=== PATIENT | female | born 1970 | race Caucasian/White ===

== ENCOUNTER 2024-10-02 19:21 | Emergency (ER) | payer OTHER, SELFPAY ==
--- OUTSIDE RECORDS SUMMARY | 2024-10-02 19:23 | XMS_ITS | Clinical Summary ---
Author Organization 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 [employer] Name Role Phone Unavailable Primary Care Provider Unavailabl e Social History Tobacco Use Types Packs/Day Years Used Date Smoking Tobacco: Never Assessed Comments Unknown Sex and Gender Information Value Date Recorded Sex Assigned at Not on file Legal Sex Female 8:18 PM CDT Gender Identity Not on file Sexual Orientation Not on file Plan of Treatment Health Maintenance Due Date Last Done Comments Cervical Cancer Screening Pa p Smear (Age 30 to 64) Every 3 Years 1968 Colorectal Cancer Screening Colonoscopy (10 Years) 1968 Annual Physical 06/17/1971 Hepatitis C 1986 DTaP, Tdap and Td Vaccines ( 1 - Tdap) 06/17/1987 Hepatitis B Vaccines (1 of 3 - 19+ 3-dose series) 06/17/1987 Cervical Cancer Screening Pa p with HPV Testing (Age 30 to 64) Every 5 Years 1998 Cervical Cancer Screening with HPV 1998 Mammogram Screening 2008 Pneumococcal Vaccine: 50+ Ye ars (1 of 1 - PCV) 2018 Zoster Vaccines (1 of 2) 2018 COVID-19 Vaccine (2023-2 5 season) 2023 Meningococcal B Vaccine Aged Out No l onger eligible based on patient's age to complete this topic Meningococcal Vaccine Aged Out No heriberto ancelmo eligible based on patient's age to complete this topic RSV Immunizations Under 20 Months Aged Out No longer eligible based on patient's age to complete this topic Insurance
[2024-10-02 19:24] VITALS: BP 135/98; PULSE 92; RESP 16; TEMP 36.6
--- OUTSIDE RECORDS SUMMARY | 2024-10-02 19:24 | XMS_ITS | Referral Summary ---
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 Name Role Phone No, Physician Primary Care Provider [phone] Allergies No known active allergies Medications No known medications Active Problems Problem Noted Date Diagnosed Date Chest pain 05/26/2019 Social History Tobacco Use Types Packs/Day Years Used Date Smoking Tobacco: Never Smokeless Tobacco: Never Alcohol Use Standard Drinks/Week Comments Yes 0 (1 standard drink = 0.6 oz pur e alcohol) Personal Safety Answer Date Recorded Getting School Help Needed Not on file 05/29 Comments No Sex and Gender Information Value Date Recorded Sex Assigned at Not on file 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 Gender Identity Not on file Sexual Orientation Not on file Last Filed Vital Signs Vital Sign Reading Time Taken Comments Blood Pressure 150/88 05/27/2019 8:37 AM CDT Pulse 68 05/27/2019 8:37 AM CDT Temperature 36.8 C (98.2 F) 05/26/2019 12:36 PM CDT Respiratory Rate 17 05/26/2019 5:30 PM CDT Oxygen Saturation 98% 05/27/2019 8:37 AM CDT Inhaled Oxygen Concentration - - Weight 95.3 kg (210 lb 3.2 oz) 05/27/2019 8:37 A M CDT Height 175.3 cm (5' 9) 05/27/2019 8:37 AM CDT Body Mass Index 31.04 05/27/2019 8:37 AM CDT Plan of Treatment Not on file Insurance [employer] Care Teams Nuclear Powerplant Supervisor Relationship Specialty Start Date End Date No, Physician PCP - General 05/26/19
--- OUTSIDE RECORDS SUMMARY | 2024-10-02 19:24 | XMS_ITS | Continuity of Care Document ---
Author Name [facility] Organization [facility] Care Team Providers Care Director Of Patient Care Name Role Phone [facility] Unavailable Unavailable Problems Combined list of problems from Department of Defense and Veterans Affairs facilities. It does not include entries that were removed or entered in error. Problem Status Onset Date Problem Type Date of Resolution Comments Source BENIGN SKIN NEOPLASM Inactive Condition [facility] joint pain, localized in the knee Active Condition [facility] Outpatient Physician Consultation Active Condition DoD snoring Active Condition DoD ACROCHORDON Active Condition DoD ATTENTION-DEFICIT HYPERACTIVITY DISORDER Active Condition DoD foot pain (soft tissue) Active Condition [facility] PARTIAL THICKNESS (2ND DEGREE) [place]ULTON ONE FINGER (NOT THUMB) Inactive Condition [facility] visit for: screening exam depression Inactive Condition DoD OVERWEIGHT Active Condition [facility] Mammogram Screening Active Condition [facility] visit for: screening exam for malignant neoplasm cervix Active Condition [facility] ROUTINE GYNECOLOGICAL EXAM WITH CERVICAL PAP SMEAR Inactive Condition [facility] PHARYNGITIS Inactive Condition [facility] drip or drainage down throat from above Inactive Condition [facility] Aftercare Following Surgery Of Nervous System Inactive Condition [facility] LUMBAR RADICULOPATHY Active Condition [facility] Administrative Evaluation Services Active Condition [facility] ESSENTIAL HYPERTENSION Active Condition [facility] STOMATITIS Active Condition [facility] SINUSITIS Active Condition [facility] visit for: administrative purpose Inactive Condition CAROLINE ZUNIGA Age :36 [id number] OUTPAT PRE-ACTIVE ORDERS 1 CON PAIN MANAGEMENT CONSULT at UTILIZATION MANAGEMENT/NURSING on 22 Feb 2007@[id number] {Disc Herniation} ~Pend.Appointment~PRE -ACTIVE~Pending Review sGUST 10DEC@1036 [facility] visit for: issue repeat prescription for medication Active Condition CAROLINE ZUNIGA Age :36 [id number] OUTPAT PRE-ACTIVE ORDERS 1 RX NAPROXEN--PO 500MG TAB~T1 TAB PO BID WF OR MILK RF1 #60 DS30 on 10 Feb 2007@1332 {rd} ~HCP Sig.Needed~PRE-ACTIVE . . . . . . . . sGUSTIM 28NOV@1333 2 RX ORPHENADRINE CITRATE--PO 100MG TBSR~TAKE 1 TAB PO BID WITH NAPROSYN RF1 #60 DS30 on 10 Feb 2007@1334 {RDH} ~HCP Sig.Needed~PRE-ACTIVE . . . . . . . . sGUSTIM 28NOV@1334 3 RX CYCLOBENZAPRINE--PO 10MG TAB~TAKE ONE TABLET PO AT HS PRN RF1 #15 DS30 on 10 Feb 2007@1335 {RDH} ~HCP Sig.Needed~PRE-ACTIVE . . . . . . . . sGUSTIM 28NOV@1335 DoD HERNIATED INTERVERTEBRAL DISC Active Condition DoD lower back pain Active Condition DoD OVARIAN CYST Active Condition DoD blood in urine Active Condition DoD ASTIGMATISM - REGULAR Active Condition DoD PREGLAUC OPEN ANGLE W/ BORDERLINE INTRAOCULAR PRESSURE BILAT Active Condition DoD abdominal pain Inactive Condition Likel y due to number one, but I will check a pelvic ultrasound to further assess this. Will also check a urinalysis. I discussed with the patient that there is a good chance we will need to refer her to a civilian M.D. for further treatment. 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 DoD MENORRHAGIA Active Condition DoD feared medical condition not demonstrated Inactive Condition DoD BREAST CANCER Active Condition fam hx DoD OVARIAN CYST RIGHT Active Condition Results of US discussed with patient. She says she has seen SHEETER HELPER and she has an endometrial ablaiton scheduled. She voiced understanding about the US results and will follow up with SHEETER HELPER. DoD LUMBAGO Active Condition DoD Other Physical Therapy Active Condition DoD DYSMENORRHEA Active Condition I feel this needs work up---Will initate workup, as radha says she has not had an US> Did have NL pap in May 2004. Will get labs, US and consult SHEETER HELPER. DoD RADICULOPATHY Active Condition DoD Allergies, Adverse Reactions, Alerts Combined list of allergies from Department of Defense and Veterans Affairs facilities. It does not include entries that were removed or entered in error. Substance Category Reaction Severity Reaction type Status Date Reported Comments Source No Known Allergies Drug allergy (disorder) active 06/10/2012 [facility] [employer] [facility] ([facility]) Immunizations Combined list of available immunizations from the Department of Defense and Veterans Affairs facilities. Immunization Series Date Given Administered By Site Reaction Lot Number CVX Code Drug [employer] Advisor Status Comments Source tetanus, diphtheria, acellular pertu is 2019 zzLef t Arm [id number] [facility] complet ed tetanus, diphtheri a, acellular pertussis 02/29/20 Given Ambulat ory Pharmac y influenza, injectable, quadrivalent- pf 2019 zzRig ht Arm [id number] 150 Seqirus complet ed influenza , injectabl e, quadrival ent-pf 02/29/20 Given Ambulat ory Pharmac y influenza, injectable, quadrivalent- pf 2019 [id number] 150 Seqirus complet ed influenza , injectabl e, quadrival ent-pf 02/29/20 Given Ambulat ory Pharmac y tetanus, diphtheria, acellular pertu is 2019 [id number] 115 GlaxoSmithKli ne complet ed tetanus, diphtheri a, acellular pertussis 02/29/20 Given Ambulat ory Pharmac y tetanus toxoid, reduced diphtheria toxoid, and acellular pertu is vaccine, adsorbed 1 2019 Unknown, Provider [id number] Skicka TårtaDiggins (SKB) complet ed tetanus toxoid, reduced diphtheri a toxoid, and acellular pertussis vaccine, adsorbed DoD Influenza, injectable, quadrivalent, preservative free 1 2019 Unknown, Provider [id number] 868 150 Seqirus (SEQ) complet ed Influenza , injectabl e, quadrival ent, preservat naga free DoD Novel Influenza-H1N 1-09,live virus,nasal 2008 [id number] 125 [employer] comple t ed Novel Influenza -[id number], live virus,corey al 01/19/09 Given Ambulat ory Pharmac y Novel Influenza-H1N 1-09,live virus,nasal 2008 [id number] 125 [employer] comple t ed Novel Influenza -[id number], live virus,corey al 01/19/09 Given Ambulat ory Pharmac y Novel Influenza-H1N 1-09, live virus for nasal administratio n 1 2008 Unknown, Provider [id number] 125 [employer] (MED) complet ed Novel Influenza -Z0B0-90, live virus for nasal administr ation DoD tetanus-dipht h toxoids (Td) adult/adol 1999 [id number] 09 sanofi pasteur complet ed tetanus-d iphth toxoids (Td) adult/ado l 01/22/00 Given Ambulat ory Pharmac y tetanus-dipht h toxoids (Td) adult/adol 1999 zzLef t Arm [id number] 09 sanofi pasteur complet ed tetanus-d iphth toxoids (Td) adult/ado l 01/22/00 Given Ambulat ory Pharmac y tetanus and diphtheria toxoids, adsorbed, preservative free, for adult use (2 Lf of tetanus toxoid and 2 Lf of diphtheria toxoid) 1 1999 Unknown, Provider [id number] 09 Sanofi Pasteur (PMC) complet ed tetanus and diphtheri a toxoids, adsorbed, preservat naga free, for adult use (2 Lf of tetanus toxoid and 2 Lf of diphtheri a toxoid) DoD Encounters Combined list of: 1) Encounters from Department of Veterans Affairs facilities going backup to the last 18 months, not all VA inpatient encounters are included; 2) Encounters from the Department of Defense facilities going backup to 280 months. Location Location Details Encounter Type Encounter Number Reason For Visit Attending Provider ADM Date DC Date Status Disposition Source [address] [place] [address] [facility])(Sco tt [employer] Medicine Tm) OUTPATIENT [id number] low back pain w/ rt leg difficu lty walking . JACKIE GERMAIN 01/28 Released w/o Limitations [address] [place] [address] [employer] [facility])(S cott Flight Medicin e Tm) [address] [place] [address] [employer] K[facility])([facility] Neuromusc [facility]) OUTPATIENT [id number] DARLENE THORNTON 02/12 Released with Work/Duty Limitations [address] [place] [address] [employer] [employer] [facility])(P t Neuromu sculosk eletal Clinic) [address] [place] [address] [employer] [facility])(Phy sical Therapy) OUTPATIENT [id number] DARLENE THORNTON 02/25 Released w/o Limitations [address] [place] [address] [facility] Kole [facility])(P hysical Therapy ) [address] [place] [address] [employer] [facility] [facility])(Phy sical Therapy) OUTPATIENT [id number] BENNIE LOZANO 02/26 Released w/o Limitations [employer] ([facility] [place])(P hysical Therapy ) [employer] ([facility])(Phy sical Therapy) OUTPATIENT [id number] BOY LOMELI P 02/28 Released w/o Limitations [employer] ([facility] [place])(P hysical Therapy ) [employer] ([facility])(Phy sical Therapy) OUTPATIENT [id number] BOY LOMELI 03/04 Released w/o Limitations [employer] ([facility] [place])(P hysical Therapy ) [employer] ([facility])(Phy sical Therapy) OUTPATIENT [id number] DARLENE THORNTON 03/20 Released w/o Limitations [employer] ([facility] [facility])(P hysical Therapy ) [employer] ([facility] [place] [facility])(Phy sical Therapy) OUTPATIENT [id number] DARLENE THORNTON 04/16 Released w/o Limitations [employer] ([facility] [place] [facility])(P hysical Therapy ) [facility] [employer] ([facility] [facility])(Ilo tt Flight Medicine Tm) OUTPATIENT [id number] [facility] med for hyperte nsion TRINO DELEON Dov 04/16 Released w/o Limitations [employer] ([facility])(S cott Flight Medicin e Tm) [facility] [employer] ([facility])(Envelope Sealer ecology) OUTPATIENT [id number] Consult : Heavy Menses DIMAS SAENZ 04/24 Released w/o Limitations [employer] ([facility])(G ynecolo gy) [facility] [employer] ([facility] [facility])(Ilo tt Flight Medicine Tm) TELE CONSULT [id number] Follow Up TRINO DELEON Dov 04/28 [employer] ([facility])(S cott Flight Medicin e Tm) [employer] ([facility])(Envelope Sealer ecology) OUTPATIENT [id number] EMB (usman Summers i) ZUNILDA MACIAS 04/30 Released w/o Limitations [employer] ([facility])(G ynecolo gy) [facility] [employer] ([facility])(Envelope Sealer ecology) TELE CONSULT [id number] results ZUNILDA MACIAS 05/06 [employer] ([facility])(G ynecolo gy) [facility] Medical [facility] B [facility])(Envelope Sealer ecology) TELE CONSULT [id number] Pre-op care plan LIOR RIGGINS 05/[address] [place] [address] [facility] B [facility])(G ynecolo gy) [address] [place] [address] [facility] B [facility])(Envelope Sealer ecology) OUTPATIENT [id number] DYSMENO RRHEA LIOR RIGGINS 05/20 Released w/o Limitations [address] [place] [address] [facility] TRACYB [facility])(G ynecolo gy) [address] [place] [address] [facility] [employer] [facility])([facility] tt Flight Medicine Tm) OUTPATIENT [id number] HTN eval and treat. JACKIE GERMAIN 10/10 Released w/o Limitations [address] [place] [address] [employer] DEMARCUSB [facility])(S cott Flight Medicin e Tm) [address] [place] [address] [employer] [employer] [facility])([facility] Flight Medicine Tm) TELE CONSULT [id number] JACKIE GERMAIN 10/[address] [place] [address] [facility]S dINK Flight Medicin e Tm) [address] [place] [address] [facility] B [facility])([facility] Flight Medicine Tm) TELE CONSULT [id number] LIPO dissolv e treatme nt JACKIE GERMAIN 10/[address] [place] [address] [facility])(S dINK Flight Medicin e Tm) [address] [place] [address] [facility])(Envelope Sealer ecology) TELE CONSULT [id number] bleedin g/cramp ing TANNER NAVARRO 07/[address] [place] [address] [facility] B [facility])(G ynecolo gy) [facility] Medical [facility] B [facility])(Envelope Sealer ecology) OUTPATIENT [id number] f/u ER (KAREN referra l) TANNER NAVARRO 07/16 Released w/o Limitations [address] [place] [address] [employer] [employer] ([facility])(G ynecolo gy) [address] [place] [address] [facility] B [facility])(Opt ometry) OUTPATIENT [id number] eye exam CASSIE FOURNIER 07/17 Released w/o Limitations [address] [place] [address] [employer] [facility])(O ptometr y) [facility] Medical [facility] [employer] B [facility])(Envelope Sealer ecology) TELE CONSULT [id number] Lab and Rad results TANNER NAVARRO P 07/17 [facility] [employer] ([facility])(G ynecolo gy) [facility] [employer] ([facility])(Envelope Sealer ecology) TELE CONSULT [id number] Pt. request s test results TANNER NAVARRO P 07/[address] [place] [address] [facility] [employer] ([facility])(G ynecolo gy) [address] [place] [address] [employer] [employer] ([facility])([facility] Non-GME FHI1) OUTPATIENT [id number] back pain. ph:[phone] ROLAND HENRY 01/08 Released w/o Limitations [facility] [employer] ([facility])(F amily Practic e Non-GME FHI1) [address] [place] [address] [employer] ([facility])(Phy sical Therapy) OUTPATIENT [id number] lower back pain ROSELINE VELAZCO 01/18 Released with Work/Duty Limitations [facility] [employer] ([facility])(P hysical Therapy ) [address] [place] [address] [employer] ([facility])(Phy sical Therapy) OUTPATIENT [id number] BOY LOMELI 01/19 Released w/o Limitations [facility] [employer] ([facility])(P hysical Therapy ) [address] [place] [address] [employer] ([facility])(Phy sical Therapy) OUTPATIENT [id number] LEONEL ESTRADA 01/26 Released w/o Limitations [address] [place] [address] [employer] ([facility])(P hysical Therapy ) [address] [place] [address] [employer] ([facility])([facility] Non-GME FHI1) TELE CONSULT [id number] Per PT (Col Dowell) , pt would benefit from MRI ESTEVAN VILLEGAS 01/[address] [place] [address] [employer] ([facility] [facility])(F amily Practic e Non-GME FHI1) [facility] [employer] ([facility])(Phy sical Therapy) OUTPATIENT [id number] LEONEL ESTRADA 01/28 Released w/o Limitations [facility] [employer] ([facility])(P hysical Therapy ) [address] [place] [address] [employer] ([facility])(Phy sical Therapy) OUTPATIENT [id number] LEONEL ESTRADA 02/02 Released w/o Limitations [employer] ([facility] [facility])(P hysical Therapy ) [facility] [employer] ([facility])(Phy sical Therapy) OUTPATIENT [id number] ROSELIEN VELAZCO 02/08 Released w/o Limitations [facility] [employer] ([facility])(P hysical Therapy ) [facility] [employer] ([facility])(Phy sical Therapy) OUTPATIENT [id number] YANETH CHRISTIANSON 02/09 Released w/o Limitations [facility] [employer] ([facility])(P hysical Therapy ) [facility] [employer] ([facility] [facility])(Fam mike Practice Non-GME FHI1) TELE CONSULT [id number] Per MALIA Henry pt needs referra l to neurosu ESTEVAN Abreu 02/[address] [place] [address] [employer] ([facility])(F amily Practic e Non-GME FHI1) [facility] Medical [facility] [employer] ([facility])(Fam mike Practice Non-GME FHI1) TELE CONSULT [id number] Pt called back request ing more pain meds until sees neurosu ESTEVAN Abreu 02/[address] [place] [address] [employer] ([facility] [facility])(F amily Practic e Non-GME FHI1) [facility] [employer] ([facility])(Phy sical Therapy) OUTPATIENT [id number] YANETH CHRISTIANSON 02/12 Released w/o Limitations [facility] [employer] ([facility] [facility])(P hysical Therapy ) [facility] [employer] ([facility] [facility])(Phy sical Therapy) OUTPATIENT [id number] LEONEL ESTRADA 02/15 Released w/o Limitations [facility] [employer] ([facility] [facility])(P hysical Therapy ) [facility] [employer] ([facility] [place])(Fam mike Practice Non-GME FHI1) TELE CONSULT [id number] Referra l request ESTEVAN VILLEGAS 02/[address] [place] [address] [employer] ([facility] [facility])(F amily Practic e Non-GME FHI1) [facility] Medical [facility] [employer] ([facility] [facility])(Phy sical Therapy) OUTPATIENT [id number] AYESHA KERR 02/18 Released w/o Limitations [employer] ([facility] [facility])(P hysical Therapy ) [employer] ([facility])(Phy sical Therapy) OUTPATIENT [id number] AYESHA KERR 02/22 Released w/o Limitations [employer] ([facility] [facility])(P hysical Therapy ) [employer] ([facility])(Phy sical Therapy) OUTPATIENT [id number] AYESHA KERR 03/04 Released w/o Limitations [employer] ([facility])(P hysical Therapy ) [employer] ([facility])(Phy sical Therapy) OUTPATIENT [id number] LEONEL ESTRADA 03/10 Released w/o Limitations [employer] ([facility] [facility])(P hysical Therapy ) [employer] ([facility])(Phy sical Therapy) OUTPATIENT [id number] YANETH CHRISTIANSON 03/12 Released w/o Limitations [employer] ([facility])(P hysical Therapy ) [employer] ([facility])(Phy sical Therapy) OUTPATIENT [id number] BOY LOMELI P 03/19 Released w/o Limitations [employer] ([facility] [facility])(P hysical Therapy ) [employer] ([facility])(Phy sical Therapy) OUTPATIENT [id number] ROSELINE VELAZCO 03/22 Released w/o Limitations [employer] ([facility] [facility])(P hysical Therapy ) [employer] ([facility])(Phy sical Therapy) OUTPATIENT [id number] BOY LOMELI 04/07 Released w/o Limitations [employer] ([facility] [facility])(P hysical Therapy ) [employer] ([facility])(Phy sical Therapy) OUTPATIENT [id number] BOY LOMELI P 04/13 Released w/o Limitations [employer] ([facility] [facility])(P hysical Therapy ) [employer] ([facility])(Phy sical Therapy) OUTPATIENT [id number] BOY LOMELI P 04/15 Released w/o Limitations [employer] ([facility] [facility])(P hysical Therapy ) [facility] [employer] ([facility])(Phy sical Therapy) OUTPATIENT [id number] AYESHA KERR W 04/21 Released w/o Limitations [employer] ([facility])(P hysical Therapy ) [facility] [employer] ([facility])(Phy sical Therapy) OUTPATIENT [id number] AYESHA KERR W 04/26 Released w/o Limitations [employer] ([facility] [place]P hysical Therapy ) [employer] [facility])([facility] ) OUTPATIENT [id number] SINUS INFECTI ON ERNESTO ALFORD 04/28 Released w/o Limitations [employer] [facility])(S cott Flight Medicin e Tm) [facility] [employer] [facility])([facility] ) OUTPATIENT [id number] Cold Sore ERNESTO ALFORD 05/04 Released w/o Limitations [employer] [facility]S cott Flight Medicin e Tm) [employer] [facility])([facility] ) TELE CONSULT [id number] Lower back pain ROSELINE ROTHMAN 07/11 [employer] [facility])(S cott Flight Medicin e Tm) [facility] [employer] [facility])(Dilip e Managemen t) TELE CONSULT [id number] CM FRANCA GALEANO 07/11 [employer] [facility])(C ase Managem ent) [employer] [facility] [facility])([facility] ) TELE CONSULT [id number] med refill flexora l and hydroco dine ZAIN CUEVAS 07/18 [employer] [facility] [place] [facility]S cott Flight Medicin e Tm) [employer] [facility] [facility])([facility] ) OUTPATIENT [id number] back pain J CARLOS ELLIS 07/18 Released w/o Limitations [employer] [facility])(S cott Interna l Medicin e Tm) [employer] [facility])(Phy sical Therapy) OUTPATIENT [id number] s/p discect cindy DARLENE THORNTON 08/16 Released w/o Limitations [employer] ([facility] [place])(P hysical Therapy ) [employer] ([facility] [place])(Phy sical Therapy) OUTPATIENT [id number] DARLENE THORNTON 08/18 Released w/o Limitations [employer] ([facility] [place])(P hysical Therapy ) [employer] ([facility] [place])(Phy sical Therapy) OUTPATIENT [id number] DARLENE THORNTON 08/21 Released w/o Limitations [employer] ([facility] [place])(P hysical Therapy ) [employer] ([facility] [place])(Phy sical Therapy) OUTPATIENT [id number] DARLENE THORNTON 08/23 Released w/o Limitations [employer] ([facility] [place])(P hysical Therapy ) [employer] ([facility] [place])(Phy sical Therapy) OUTPATIENT [id number] DARLENE THORNTON 08/29 Released w/o Limitations [employer] ([facility] [place])(P hysical Therapy ) [employer] ([facility] [place])(Phy sical Therapy) OUTPATIENT [id number] DARLENE THORNTON 09/04 Released w/o Limitations [employer] ([facility] [place])(P hysical Therapy ) [employer] ([facility] [place])(Phy sical Therapy) OUTPATIENT [id number] MELLY LAINEZ 09/12 Released w/o Limitations [employer] ([facility] [place])(P hysical Therapy ) [employer] ([facility] [place])(Phy sical Therapy) OUTPATIENT [id number] DARLENE THORNTON 09/19 Released w/o Limitations [employer] ([facility] [place])(P hysical Therapy ) [employer] ([facility] [place])(War rior Op Med Cln Tm A Ad) OUTPATIENT [id number] [facility] s patch [phone] GRACIE TOLENTINO 08/21 Released w/o Limitations [employer] ([facility] [place])(W arrior Op Med Cln Tm A Ad) [employer] ([facility] [place])(Envelope Sealer ecology) OUTPATIENT [id number] pap MILLICENT MARCOS 09/04 Released w/o Limitations [address] [place] [address] [facility]G ynecolo gy) [address] [place] [address] [facility]Sco tt [facility] Fam Res Tm Green) OUTPATIENT [id number] f/u for 2nd degree burn on left hand [phone] TAIWO EVANS 08/12 Released w/o Limitations [address] [place] [address] [facility]S cott [facility] Fam Res Tm Green) [address] [place] [address] [facility]Sco tt [facility] Fam Res Tm Green) TELE CONSULT [id number] Notes Entered by: AYAN QUIROZ 27 Nov 2011 1329 ------- ------- ------- ------- -- Foot pain - Donna Cade [phone] - tsg HANH JAVIER 11/[address] [place] [address] [facility]S cott [facility]am Res Tm Green) [address] [place] [address] [facility]Sco tt [facility] Fam Res Tm Green) OUTPATIENT [id number] right foot pain [phone] AYESHA FERNANDEZ 11/27 Released w/o Limitations [address] [place] [address] [facility]S cott [facility] Fam Res Tm Green) [address] [place] [address] [facility]Sco tt [facility] Fam Res Tm Green) OUTPATIENT [id number] Med refill blood pressur e [phone] test for adult ADD MILIND FUENTES 03/12 Released w/o Limitations [address] [place] [address] [facility])(S cott [facility]am Res Tm Green) [address] [place] [address] [facility]Sco tt [facility] Fam Res Tm Green) TELE CONSULT [id number] Notes Entered by: SANDRO PALENCIA 12 Apr 2012 1431 ------- ------- ------- ------- -- Follow up appoint ment request -Donna/ [phone] HANH JAVIER 04/[address] [place] [address] [employer] [facility] ([facility] [place]S cott [facility]am Res [facility]m Green) [address] [place] [address] [facility] ([facility] [place]Sco tt [facility] Fam Res Tm Green) OUTPATIENT [id number] f/u ADD: discuss medicat ion [phone] HAYLEY MARIE Taniya 04/22 Released w/o Limitations [address] [place] [address] [employer] [facility] ([facility] [place]S cott [facility]am Res Tm Green) [address] [place] [address] [facility]Sco tt [facility] Fam Res Tm Green) TELE CONSULT [id number] Notes Entered by: POOJA AZUL 23 Apr 2012 1003 ------- ------- ------- ------- -- Handwri tten Rx doesn't exist/G ibbs/61 [phone] HAYLEY MARIE Taniya 04/[address] [place] [address] [facility])(S cott [facility] Fam Res Tm Green) [address] [place] [address] [facility])(Sco tt [facility] Fam Res Tm Green) OUTPATIENT [id number] sleep problem s [phone] JIAN MASTERS 06/10 Released w/o Limitations [address] [place] [address] [employer])(S cott [facility] Fam Res Tm Green) [address] [place] [address] [facility]Sco tt [facility] Fam Res Tm Green) TELE CONSULT [id number] Notes Entered by: TANYA ORTEGA 30 Jul 2012 1300 ------- ------- ------- ------- -- Network Results - PULMONO LOGY/VILMA EEP 3 SENSHELEN SEGURA 07/[address] [place] [address] [facility]S cott [facility]am Res Tm Green) [address] [place] [address] [facility]Sco tt [facility] Fam Res Tm Green) OUTPATIENT [id number] rt knee pain x1wk/af ter pt went running [phone] JIAN MASTERS 12/10 Released w/o Limitations [address] [place] [address] [facility])(S cott [facility] Fam Res Tm Green) [address] [place] [address] [employer] ([facility] [place]co tt [facility] Fam Res Tm Green) OUTPATIENT [id number] general physica l [id number] TAIWO EVANS 01/04 Released w/o Limitations [address] [place] [address] [employer] [facility] ([facility] [place]S cott [facility] Fam Res Tm Green) [address] [place] [address] [facility])(Opt ometry) OUTPATIENT [id number] yearly eye exam- ANNAMARIE BURK 06/20 Released w/o Limitations [address] [place] [address] [employer] [facility] ([facility] [place])(O ptometr y) [address] [place] [address] [facility])(Sco tt [facility] [place] [facility] Fam Res Tm Red) TELE CONSULT [id number] Notes Entered by: NANCY RIVERA 20 Sep 2013 0900 ------- ------- ------- ------- -- Med refill - Donna - [phone] PALLAVI MARSH 09/[address] [place] [address] [facility] [place]S cott [facility] Fam Res Tm Red) [address] [place] [address] [facility]co tt [facility] Fam Res Tm Green) OUTPATIENT [id number] blood presure //etc ERIS MELGAR LT 11/01 Released w/o Limitations [address] [place] [address] [employer]S cott [facility] Fam Res Tm Green) [address] [place] [address] [facility] [place]Sco tt [facility] Fam Res Tm Green) OUTPATIENT [id number] f/u ERIS MELGAR LT 11/15 Released w/o Limitations [address] [place] [address] [employer] [facility] ([facility] [place]S cott [facility] Fam Res Tm Green) [address] [place] [address] [facility] [facility]Sco tt [facility] Fam Res Tm Green) OUTPATIENT [id number] F/U medicat ion - [phone] ERIS MELGAR LT 01/12 Released w/o Limitations [address] [place] [address] [facility] ([facility] [place]S cott [facility] Fam Res Tm Green) [address] [place] [address] [facility] [place]Sco tt [facility] Fam Res Tm Green) OUTPATIENT [id number] f/u blood pressur e/weigh t loss meds ERIS MELGAR LT 02/07 Released w/o Limitations [address] [place] [address] [facility]S [facility] Fam Esperanza Hernandes) [address] [place] [address] [facility])([facility] ) TELE CONSULT [id number] Notes Entered by: NELSY MOODY 25 Apr 2016 0751 ------- ------- ------- ------- -- ER f/u/Jose euceda/Gerardo [phone] BENNIE BUTTS A 04/25 Referred for Appointment [address] [place] [address] [facility])(S cott Interna l Medicin e Tm) [address] [place] [address] [facility])(VA - Orthopedi cs) OUTPATIENT [id number] right wrist fractur e MAYANK DASILVA A 04/28 Released w/o Limitations [address] [place] [address])(V A - Orthope dics) [address] [place] [address])([facility] ) TELE CONSULT [id number] Notes Entered by: AYAN QUIROZ 29 Jul 2016 0958 ------- ------- ------- ------- -- Sx: Light headed ness/di zziness /headac azul Keren - - tsg* ROBIN CEJA A 07/29 Referred for Appointment [address] [place] [address] [facility])(S cott Interna l Medicin e Tm) [address] [place] [address] [facility])([facility] ) OUTPATIENT [id number] Annual clinic eval/ rx refill (Htn).. 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) TELE CONSULT [id number] Notes Entered by: ABHIJEET MICHELLE 07 Aug 2016 1628 ------- ------- ------- ------- -- Lab results ZUNILDA MACIAS 08/[address] [place] [address])( [facility] gy) [address] [place] [address])([facility] Internal [facility] Tm) TELE CONSULT [id number] Notes Entered by: SKYLER PAULINO 08 Aug 2016 1245 ------- ------- ------- ------- -- 24 LA AMBROSIO 08/08 Referred for Appointment [address] [place] [address])(S cott Interna l Medicin e Tm) [address] [place] [address])([facility] Internal Medicine Tm) OUTPATIENT [id number] weight loss and B/P MARIANNE MCHUGH V 08/18 Released w/o Limitations [address] [place] [address])(S cott Interna l Medicin e Tm) [address] [place] [address])([facility] tt Disease Managemen t) OUTPATIENT [id number] Notes Entered by: BRANDON MAE 19 Aug 2016 0854 ------- ------- ------- ------- -- Pt needing glucome ter teachin g per pcm BRANDON MAE 08/19 Released w/o Limitations [address] [place] [address])(S cott Disease Managem ent) [address] [place] [address])(Envelope Sealer ecology) TELE CONSULT [id number] Notes Entered by: ALYSSA MACIAS 21 Aug 2016 1418 ------- ------- ------- ------- -- results KENZIE SIMPSON 08/[address] [place] [address])(G ynecolo gy) [address] [place] [address])(Envelope Sealer ecology) OUTPATIENT [id number] [facility] ZUNILDA MACIAS 08/29 Released w/o Limitations [address] [place] [address])(G ynecolo gy) [address] [place] [address])(Envelope Sealer ecology) TELE CONSULT [id number] Notes Entered by: ALYSSA MACIAS 04 Sep 2016 1312 ------- ------- ------- ------- -- results GRACE STEWART 09/[address] [place] [address])(G ynecolo gy) [address] [place] [address])(Envelope Sealer ecology) OUTPATIENT [id number] discuss surgica l tx (hyster ectomy) [phone] RINA HERNANDES 09/09 Released w/o Limitations [address] [place] [address])(G ynecolo gy) [address] [place] [address])(Envelope Sealer ecology) TELE CONSULT [id number] Notes Entered by: CELESTINE HUTSON 23 Sep 2016 1036 ------- ------- ------- ------- -- Jericho calhoun for surgery [id number] @1030 STEPHEN HUTSON 09/[address] [place] [address])(G ynecolo gy) [address] [place] [address])(Envelope Sealer ecology) TELE CONSULT [id number] Notes Entered by: JAMIE LEACH 25 Sep 2016 1453 ------- ------- ------- ------- -- Scanned andrew gy results into RINA ENGLAND 09/[address] [place] [address])(G ynecolo gy) [address] [place] [address])(Envelope Sealer ecology) OUTPATIENT [id number] post op/pre- op [phone] RINA HERNANDES 09/30 Released w/o Limitations [address] [place] [address] [facility])(G ynecolo gy) [address] [place] [address] [facility])(Envelope Sealer ecology) TELE CONSULT [id number] Notes Entered by: CELESTINE HUTSON 07 Oct 2016 0835 ------- ------- ------- ------- -- Jericho calhoun for surgery [id number] @0730 STEPHEN HUTSON 10/[address] [place] [address] [facility])(G ynecolo gy) [address] [place] [address] [facility])(Envelope Sealer ecology) TELE CONSULT [id number] Notes Entered by: JAMIE LEACH 09 Oct 2016 1532 ------- ------- ------- ------- -- Scanned andrew thornton report into RINA ENGLAND 10/[address] [place] [address] [facility])(G yulysses gy) [address] [place] [address] [facility])(Sco tt Internal Medicine Tm) TELE CONSULT [id number] Notes Entered by: CHULA CONNOR 13 Oct 2016 1026 ------- ------- ------- ------- -- Network Results Surgery 7 LIOR DAY 10/[address] [place] [address] [facility])(S cott Interna l Medicin e Tm) [address] [place] [address] [facility])(Envelope Sealer ecology) TELE CONSULT [id number] Notes Entered by: JAMIE LEACH 14 Oct 2016 0807 ------- ------- ------- ------- -- Post op with MOLLY Acosta 10/[address] [place] [address] [facility])(G ynecolo gy) [address] [place] [address] [facility])(Ob/ Envelope Sealer) OUTPATIENT [id number] F/U RINA Rodgers 10/14 Released w/o Limitations [address] [place] [address] [facility])(O b/Envelope Sealer) [address] [place] [address] [facility])(Envelope Sealer ecology) OUTPATIENT [id number] POST OP - [phone] RINA HERNANDES 11/04 Released w/o Limitations [address] [place] [address] [facility])(G ynecolo gy) [address] [place] [address] [facility])(Envelope Sealer ecology) OUTPATIENT [id number] POST OP #2 - [phone] RINA HERNANDES 12/03 Released w/o Limitations [address] [place] [address] [facility])(G ynecolo gy) [address] [place] [address] [facility])(Envelope Sealer ecology) TELE CONSULT [id number] Notes Entered by: ADRIANA ANDRADE 29 Dec 2016 1234 ------- ------- ------- ------- -- Network Results - PHYSICA L THERAPY 12/10/16 RINA LOCKETT 12/[address] [place] [address] [facility])(G ynecolo gy) [address] [place] [address])([facility] Internal Medicine Tm) OUTPATIENT [id number] Routine Check - restart blood pressur e medicat ion SADIE GUTIERREZ NMI 09/21 Released w/o Limitations [address] [place] [address] [facility])(S cott Interna l Medicin e Tm) [address] [place] [address] [facility])([facility] Tm) TELE CONSULT [id number] Notes Entered by: Colt GUTIERREZ NMI 24 Sep 2018 1026 ------- ------- ------- ------- -- Elevate d lipid panel. Pt was not fasting SADIE GUTIERREZ NMI 09/[address] [place] [address])(S cott Interna l Medicin e Tm) [address] [place] [address])([facility] tt Internal Medicine Tm) TELE CONSULT [id number] Notes Entered by: NELSY MOODY 27 May 2019 1035 ------- ------- ------- ------- -- Referra l Request /Sosgilberto / BENNIE GAYTAN Vazquez 05/26 Other Not Elsewhere Classified [address] [place] [address])(S cott Interna l Medicin e Tm) [address] [place] [address])([facility] tt Internal Medicine Tm) OUTPATIENT [id number] Virtual - Blood Pressur e, ALEXI SCOTT 02/23 Released w/o Limitations [address] [place] [address])(S cott Interna l Medicin e Tm) [address] [place] [address])([facility] ) OUTPATIENT [id number] f/u appt virtual [phone] ALEXI SCOTT 02/28 Released w/o Limitations [address] [place] [address])(S cott Interna l Medicin e Tm) [address] [place] [address])(Envelope Sealer ecology) TELE CONSULT [id number] Notes Entered by: JOCELYN DREW RET 02 Jul 2020 0740 ------- ------- ------- ------- -- SX: Vaginal Irritat ion/Gravel Roofer ddock/l BANDAR VILLAGOMEZ 07/[address] [place] [address])(G ynecolo gy) [address] [place] [address])(Envelope Sealer ecology) OUTPATIENT [id number] STD concern no symptom s BANDAR VILLAGOMEZ 07/03 Released w/o Limitations [address] [place] [address])(G ynecolo gy) Procedures Combined list of: 1) Procedures from Department of Veterans Affairs facilities going back up to thelast 18 months, not all VA non-surgical procedures are included; 2) All procedures from the Department of Defense facilities. Procedure Procedure Type Code Date Perfomer Comments Sourc e No data available for this section Ambulatory [facility] EKG (SCALP) 1993 DoD OTHER ARTIFICIAL RUPTURE OF MEMBRANES 1993 DoD CYTOPATHOLOGY; PAP SMEAR, PRESERVED, AUTO THIN LAYER, MAX 3 2004 [facility] CARDIOVASCULAR STRESS TEST USING MAXIMAL OR SUBMAXIMAL TREADMILL OR BICYCLE EXERCISE,CONTINUOUS ELECTROCARDIOGRAPHIC MONITORING,AND/OR PHARMACOLOGICAL STRESS;W SUPERVISION,INTERPRETA TION AND REPORT 2003 [facility] ELECTROCARDIOGRAM, ROUTINE ECG WITH AT LEAST 12 LEADS; WITH INTERPRETATION AND REPORT 2003 [facility] INJECTION, KETOROLAC TROMETHAMINE, PER 15 MG 2002 [facility] SMEAR, PRIMARY SOURCE WITH INTERPRETATION; WET MOUNT FOR INFECTIOUS AGENTS (EG, SALINE, NIKHIL INK, KESHIA PREPS) 2020 DoD WAIVER SERVICES; NOT OTHERWISE SPECIFIED (NOS) 2019 DoD WAIVER SERVICES; NOT OTHERWISE SPECIFIED (NOS) 2019 DoD BRIEF EMOTIONAL/BEHAVIORAL ASSESSMENT (EG, DEPRESSION INVENTORY, ATTENTION-DEFICIT/HYPE RACTIVITY DISORDER [ADHD] SCALE), WITH SCORING AND DOCUMENTATION, PER STANDARDIZED INSTRUMENT 2018 [facility] BRIEF EMOTIONAL/BEHAVIORAL ASSESSMENT (EG, DEPRESSION INVENTORY, ATTENTION-DEFICIT/HYPE RACTIVITY DISORDER [ADHD] SCALE), WITH SCORING AND DOCUMENTATION, PER STANDARDIZED INSTRUMENT 2016 [facility] TELE ASSESS & MGT SRV PROV QUAL NONPHYS HLTH CARE PRO TO EST PAT,PARENT,GUARD NOT ORIG REL ASSESS & MGT SRV PROV W/IN PREV 7 DAYS NOR LEAD ASSESS & MGT SRV/PX W/IN NXT 24 HR/SOON APT;5-10 MIN MED DIS 2016 [facility] ANTERIOR COLPORRHAPHY, REPAIR OF CYSTOCELE WITH OR WITHOUT REPAIR OF URETHROCELE, INCLUDING CYSTOURETHROSCOPY, WHEN PERFORMED 2016 [facility] TELE ASSESS & MGT SRV PROV QUAL NONPHYS HLTH CARE PRO TO EST PAT,PARENT,GUARD NOT ORIG REL ASSESS & MGT SRV PROV W/IN PREV 7 DAYS NOR LEAD ASSESS & MGT SRV/PX W/IN NXT 24 HR/SOON APT;5-10 MIN MED DIS 2016 [facility] HYSTEROSCOPY, SURGICAL; WITH SAMPLING (BIOPSY) OF ENDOMETRIUM AND/OR POLYPECTOMY, WITH OR WITHOUT D & C 2016 [facility] TELE ASSESS & MGT SRV PROV QUAL NONPHYS HLTH CARE PRO TO EST PAT,PARENT,GUARD NOT ORIG REL ASSESS & MGT SRV PROV W/IN PREV 7 DAYS NOR LEAD ASSESS & MGT SRV/PX W/IN NXT 24 HR/SOON APT;5-10 MIN MED DIS 2016 DoD ENDOMETRIAL SAMPLING (BIOPSY) WITH OR WITHOUT ENDOCERVICAL SAMPLING (BIOPSY), WITHOUT CERVICAL DILATION, ANY METHOD (SEPARATE PROCEDURE) 2016 DoD SELF-CARE EDUCATION PROVIDED TO PATIENT (HF) 2016 DoD BRIEF EMOTIONAL/BEHAVIORAL ASSESSMENT (EG, DEPRESSION INVENTORY, ATTENTION-DEFICIT/HYPE RACTIVITY DISORDER [ADHD] SCALE), WITH SCORING AND DOCUMENTATION, PER STANDARDIZED INSTRUMENT 2016 DoD TELE ASSESS & MGT SRV PROV QUAL NONPHYS HLTH CARE PRO TO EST PAT,PARENT,GUARD NOT ORIG REL ASSESS & MGT SRV PROV W/IN PREV 7 DAYS NOR LEAD ASSESS & MGT SRV/PX W/IN NXT 24 HR/SOON APT;5-10 MIN MED DIS 2016 DoD SCREENING [place]OL[place] SMEAR; OBTAINING, PREPARING AND CONVEYANCE OF CERVICAL OR VAGINAL SMEAR TO LABORATORY 2016 DoD APPLICATION OF SHORT ARM SPLINT (FOREARM TO HAND); STATIC 2016 DoD TELE ASSESS & MGT SRV PROV QUAL NONPHYS HLTH CARE PRO TO EST PAT,PARENT,GUARD NOT ORIG REL ASSESS & MGT SRV PROV W/IN PREV 7 DAYS NOR LEAD ASSESS & MGT SRV/PX W/IN NXT 24 HR/SOON APT;5-10 MIN MED DIS 2016 DoD DETERMINATION OF REFRACTIVE STATE 2013 DoD TELE ASSESS & MGT SRV PROV QUAL NONPHYS HLTH CARE PRO TO EST PAT,PARENT,GUARD NOT ORIG REL ASSESS & MGT SRV PROV W/IN PREV 7 DAYS NOR LEAD ASSESS & MGT SRV/PX W/IN NXT 24 HR/SOON APT;5-10 MIN MED DIS 2012 DoD TELE ASSESS & MGT SRV PROV QUAL NONPHYS HLTH CARE PRO TO EST PAT,PARENT,GUARD NOT ORIG REL ASSESS & MGT SRV PROV W/IN PREV 7 DAYS NOR LEAD ASSESS & MGT SRV/PX W/IN NXT 24 HR/SOON APT;5-10 MIN MED DIS 2012 DoD REMOVAL OF SKIN TAGS, MULTIPLE FIBROCUTANEOUS TAGS, ANY AREA; UP TO AND INCLUDING 15 LESIONS 2011 DoD TELE ASSESS & MGT SRV PROV QUAL NONPHYS HLTH CARE PRO TO EST PAT,PARENT,GUARD NOT ORIG REL ASSESS & MGT SRV PROV W/IN PREV 7 DAYS NOR LEAD ASSESS & MGT SRV/PX W/IN NXT 24 HR/SOON APT;5-10 MIN MED DIS 2011 DoD SCREENING [place] SMEAR; OBTAINING, PREPARING AND CONVEYANCE OF CERVICAL OR VAGINAL SMEAR TO LABORATORY 2009 DoD THERAPEUTIC PROCEDURE, 1 OR MORE AREAS, EACH 15 MINUTES; THERAPEUTIC EXERCISES TO DEVELOP STRENGTH AND ENDURANCE, RANGE OF MOTION AND FLEXIBILITY 2008 DoD THERAPEUTIC PROCEDURE, 1 OR MORE AREAS, EACH 15 MINUTES; THERAPEUTIC EXERCISES TO DEVELOP STRENGTH AND ENDURANCE, RANGE OF MOTION AND FLEXIBILITY 2008 DoD MANUAL THERAPY TECHNIQUES (EG, MOBILIZATION/ MANIPULATION, MANUAL LYMPHATIC DRAINAGE, MANUAL TRACTION), 1 OR MORE REGIONS, EACH 15 MINUTES 2008 DoD APPLICATION OF A MODALITY TO 1 OR MORE AREAS; TRACTION, MECHANICAL 2008 DoD THERAPEUTIC PROCEDURE, 1 OR MORE AREAS, EACH 15 MINUTES; THERAPEUTIC EXERCISES TO DEVELOP STRENGTH AND ENDURANCE, RANGE OF MOTION AND FLEXIBILITY 2008 DoD THERAPEUTIC PROCEDURE, 1 OR MORE AREAS, EACH 15 MINUTES; THERAPEUTIC EXERCISES TO DEVELOP STRENGTH AND ENDURANCE, RANGE OF MOTION AND FLEXIBILITY 2008 DoD THERAPEUTIC PROCEDURE, 1 OR MORE AREAS, EACH 15 MINUTES; THERAPEUTIC EXERCISES TO DEVELOP STRENGTH AND ENDURANCE, RANGE OF MOTION AND FLEXIBILITY 2008 DoD PHYSICAL THERAPY EVALUATION 2008 DoD TELE ASSESS & MGT SRV PROV QUAL NONPHYS HLTH CARE PRO TO EST PAT,PARENT,GUARD NOT ORIG REL ASSESS & MGT SRV PROV W/IN PREV 7 DAYS NOR LEAD ASSESS & MGT SRV/PX W/IN NXT 24H/SOON APT; 11-20 MIN MED DIS 2008 DoD TELE ASSESS & MGT SRV PROV QUAL NONPHYS HLTH CARE PRO TO EST PAT,PARENT,GUARD NOT ORIG REL ASSESS & MGT SRV PROV W/IN PREV 7 DAYS NOR LEAD ASSESS & MGT SRV/PX W/IN NXT 24H/SOON APT; 11-20 MIN MED DIS 2008 DoD APPLICATION OF A MODALITY TO 1 OR MORE AREAS; TRACTION, MECHANICAL 2007 DoD APPLICATION OF A MODALITY TO 1 OR MORE AREAS; ELECTRICAL STIMULATION (MANUAL), EACH 15 MINUTES 2007 DoD THERAPEUTIC PROCEDURE, 1 OR MORE AREAS, EACH 15 MINUTES; THERAPEUTIC EXERCISES TO DEVELOP STRENGTH AND ENDURANCE, RANGE OF MOTION AND FLEXIBILITY 2007 DoD THERAPEUTIC PROCEDURE, 1 OR MORE AREAS, EACH 15 MINUTES; THERAPEUTIC EXERCISES TO DEVELOP STRENGTH AND ENDURANCE, RANGE OF MOTION AND FLEXIBILITY 2007 DoD THERAPEUTIC PROCEDURE, 1 OR MORE AREAS, EACH 15 MINUTES; THERAPEUTIC EXERCISES TO DEVELOP STRENGTH AND ENDURANCE, RANGE OF MOTION AND FLEXIBILITY 2007 DoD APPLICATION OF A MODALITY TO 1 OR MORE AREAS; TRACTION, MECHANICAL 2007 DoD APPLICATION OF A MODALITY TO 1 OR MORE AREAS; TRACTION, MECHANICAL 2007 DoD APPLICATION OF A MODALITY TO 1 OR MORE AREAS; TRACTION, MECHANICAL 2006 DoD APPLICATION OF A MODALITY TO 1 OR MORE AREAS; ELECTRICAL STIMULATION (UNATTENDED) 2006 DoD APPLICATION OF A MODALITY TO 1 OR MORE AREAS; TRACTION, MECHANICAL 2006 DoD APPLICATION OF A MODALITY TO 1 OR MORE AREAS; TRACTION, MECHANICAL 2006 DoD APPLICATION OF A MODALITY TO 1 OR MORE AREAS; TRACTION, MECHANICAL 2006 DoD APPLICATION OF A MODALITY TO 1 OR MORE AREAS; TRACTION, MECHANICAL 2006 DoD APPLICATION OF A MODALITY TO 1 OR MORE AREAS; TRACTION, MECHANICAL 2006 DoD APPLICATION OF A MODALITY TO 1 OR MORE AREAS; TRACTION, MECHANICAL 2006 DoD APPLICATION OF A MODALITY TO 1 OR MORE AREAS; ULTRASOUND, EACH 15 MINUTES 2006 DoD APPLICATION OF A MODALITY TO 1 OR MORE AREAS; ELECTRICAL STIMULATION (MANUAL), EACH 15 MINUTES 2006 DoD APPLICATION OF A MODALITY TO 1 OR MORE AREAS; HOT OR COLD PACKS 2006 DoD APPLICATION OF A MODALITY TO 1 OR MORE AREAS; HOT OR COLD PACKS 2006 DoD APPLICATION OF A MODALITY TO 1 OR MORE AREAS; HOT OR COLD PACKS 2006 DoD APPLICATION OF A MODALITY TO 1 OR MORE AREAS; HOT OR COLD PACKS 2006 DoD DETERMINATION OF REFRACTIVE STATE 2006 DoD ENDOMETRIAL SAMPLING (BIOPSY) WITH OR WITHOUT ENDOCERVICAL SAMPLING (BIOPSY), WITHOUT CERVICAL DILATION, ANY METHOD (SEPARATE PROCEDURE) 2006 DoD UNLISTED SPECIAL SERVICE, PROCEDURE OR REPORT 2005 DoD ENDOMETRIAL SAMPLING (BIOPSY) WITH OR WITHOUT ENDOCERVICAL SAMPLING (BIOPSY), WITHOUT CERVICAL DILATION, ANY METHOD (SEPARATE PROCEDURE) 2005 DoD PHYSICAL THERAPY RE-EVALUATION 2005 DoD SUPP &MATERIAL (EXCEPT SPECTACLE),PROVID,THE PHYS/OTH QUALIFIED HEALTH GILL BOX OPERATOR OVER &ABOVE THOSE USUALLY INCLD W THE OFFICE VISIT/OTH SER RENDERED (LIST DRUG,TRAYS,SUPP,OR MATERIAL PROVID) 2005 [facility] APPLICATION OF A MODALITY TO 1 OR MORE AREAS; HOT OR COLD PACKS 2004 [facility] APPLICATION OF A MODALITY TO 1 OR MORE AREAS; HOT OR COLD PACKS 2004 DoD SELF-CARE/HOME MANAGMENT TRAIN (EG,ACT OF DAILY LIVING (ADL) &COMPENSAT TRAIN,MEAL PREPARATION,SAFETY PROCS,AND INSTRUCT IN USE OF ASST TECHNOLOGY DEV/ADPT EQUIP) DIR ONE-ON-ONE CONT,EA 15 MINUTES 2004 DoD APPLICATION OF A MODALITY TO 1 OR MORE AREAS; HOT OR COLD PACKS 2004 DoD SELF-CARE/HOME MANAGMENT TRAIN (EG,ACT OF DAILY LIVING (ADL) &COMPENSAT TRAIN,MEAL PREPARATION,SAFETY PROCS,AND INSTRUCT IN USE OF ASST TECHNOLOGY DEV/ADPT EQUIP) DIR ONE-ON-ONE CONT,EA 15 MINUTES 2004 DoD OTHER BILATERAL ENDOSCOPIC DESTRUCTION OR OCCLUSION OF FALLOPIAN TUBES 1995 [facility] Cervical Pap Smear Cervical Pap Smear 60745 2006 TANNER NAVARRO [facility] Endometrial Biopsy By Suction Endometrial Biopsy By Suction [id number] 2005 ZUNILDA MACIAS [facility] Physical Medicine Physical Therapy Re-Evaluation Physical Medicine Physical Therapy Re-Evaluation 79457 2005 DARLENE THORNTON [facility] Physical Medicine Physical Therapy Re-Evaluation Physical Medicine Physical Therapy Re-Evaluation 29976 2005 DARLENE THORNTON [facility] Phys Therapy Education Self Care Training - Per 15 Minutes Phys Therapy Education Self Care Training - Per 15 Minutes 83547 2005 DARLENE THORNTON [facility] -Supervised Services Provision Of Special Supplies -Supervised Services Provision Of Special Supplies 02714 2005 DARLENE THORNTON [facility] Training And Self-Care Skills Training And Self-Care Skills 79455 2004 BOY LOMLEI Modalities Electrical Stimulation Unattended Modalities Electrical Stimulation Unattended 72131 2004 BOY LOMELI Modalities Heat Hot Packs Modalities Heat Hot Packs 02211 2004 BOY LOMELI Modalities Electrical Stimulation Unattended Modalities Electrical Stimulation Unattended 85823 2004 BOY LOMELI [facility] Training And Self-Care Skills Training And Self-Care Skills 74798 2004 BOY LOMELI [facility] Modalities Heat Hot Packs Modalities Heat Hot Packs 65309 2004 BOY LOMELI [facility] Modalities Heat Hot Packs Modalities Heat Hot Packs 67830 2004 BENNIE LOZANO [facility] Modalities Electrical Stimulation Unattended Modalities Electrical Stimulation Unattended 20329 [facility] Training And Self-Care Skills Training And Self-Care Skills 11385 2004 BENNIE LOZANO [facility] Physical Medicine Physical Therapy Re-Evaluation Physical Medicine Physical Therapy Re-Evaluation 41860 2004 DARLENE THORNTON [facility] Physical Therapy Mobilization Joint Physical Therapy Mobilization Joint 44162 2004 DARLENE THORNTON [facility] Modalities Heat Hot Packs Modalities Heat Hot Packs 83812 [facility] Physical Therapy Evaluation Physical Medicine Physical Therapy Evaluation 63278 [facility] Phys Therapy Education Self Care Training - Per 15 Minutes Phys Therapy Education Self Care Training - Per 15 Minutes 94229 [facility] Non-Phys[facility] Phone Call To Patient/Provider Brief (5-10min) Non-Physician Phone Call To Patient/Provider Brief (5-10min) 39190 2016 MOLLY VÁZQUEZ [facility] Non-Physician Phone Call To Patient/Provider Brief (5-10min) Non-Physician Phone Call To Patient/Provider Brief (5-10min) 74613 2016 STEPHEN HUTSON [facility] Non-Physician Phone Call To Patient/Provider Brief (5-10min) Non-Physician Phone Call To Patient/Provider Brief (5-10min) 18355 2016 STEPHEN HUTSON [facility] Endometrial Biopsy By Suction Endometrial Biopsy By Suction 54568 2016 ZUNILDA MACIAS [facility] Test Test 94409 2016 ZUNILDA MACIAS [facility] Non-Physician Phone Call To Patient/Provider Brief (5-10min) Non-Physician Phone Call To Patient/Provider Brief (5-10min) 36820 2016 LA DOLAN [facility] Screening papanicolaou smear; obtaining, preparing and conveyance of cervical or vaginal smear to laboratory 2016 ZUNILDA MACIAS [facility] Splinting Wrist Static Neutral Position Splinting Wrist Static Neutral Position 20835 2016 MAYANK DASILVA Non-Physician Phone Call To Patient/Provider Brief (5-10min) Non-Physician Phone Call To Patient/Provider Brief (5-10min) 72103 2016 BENNIE BUTTS Determination Of Refractive State Determination Of Refractive State 14176 2013 ANNAMARIE BURK Scanning Computerized Ophthalmic Diagnostic Imaging Optic Nerve Scanning Computerized Ophthalmic Diagnostic Imaging Optic Nerve 05844 2013 ANNAMARIE BURK Visual Alexander Test Intermediate Examination Visual Alexander Test Intermediate Examination 19202 2013 ANNAMARIE BURK Ophthalmological New Patient Start Comprehensive Care Ophthalmological New Patient Start Comprehensive Care 62906 2013 ANNAMARIE BURK Non-Physician Phone Call To Patient/Provider Brief (5-10min) Non-Physician Phone Call To Patient/Provider Brief (5-10min) 58152 2012 HANH JAVIER Non-Physician Phone Call To Patient/Provider Brief (5-10min) Non-Physician Phone Call To Patient/Provider Brief (5-10min) 73741 2012 HANH JAVIER Skin Tag Removal Skin Tag Removal 79958 2011 MILIND FUENTES Non-Physician Phone Call To Patient/Provider Brief (5-10min) Non-Physician Phone Call To Patient/Provider Brief (5-10min) 85644 2011 HANH JAVIER Screening papanicolaou smear; obtaining, preparing and conveyance of cervical or vaginal smear to laboratory 2009 MILLICENT MARCOS [facility] Physical Therapy Mobilization Joint Physical Therapy Mobilization Joint 32237 2008 DARLENE THORNTON [facility] Physical Therapy: ___ Se ion Segments, 15 Minutes Each Physical Therapy: ___ Session Segments, 15 Minutes Each 62123 2008 DARLENE THORNTON [facility] Physical Therapy: ___ Se ion Segments, 15 Minutes Each Physical Therapy: ___ Session Segments, 15 Minutes Each 46813 2008 MELLY LAINEZ [facility] Physical Therapy Mobilization Joint Physical Therapy Mobilization Joint 91300 2008 DARLENE THORNTON [facility] Physical Therapy: ___ Se ion Segments, 15 Minutes Each Physical Therapy: ___ Session Segments, 15 Minutes Each 11432 2008 DARLENE THORNTON [facility] Modalities Traction Modalities Traction 79588 2008 DARLENE THORNTON [facility] Physical Therapy Mobilization Joint Physical Therapy Mobilization Joint 05263 2008 DARLENE THORNTON [facility] Physical Therapy: ___ Se ion Segments, 15 Minutes Each Physical Therapy: ___ Session Segments, 15 Minutes Each 74322 2008 DARLENE THORNTON [facility] Physical Therapy: ___ Se ion Segments, 15 Minutes Each Physical Therapy: ___ Session Segments, 15 Minutes Each 05639 2008 DARLENE THORNTON [facility] Physical Therapy: ___ Se ion Segments, 15 Minutes Each Physical Therapy: ___ Session Segments, 15 Minutes Each 14448 2008 DARLENE THORNTON [facility] Physical Therapy: ___ Se ion Segments, 15 Minutes Each Physical Therapy: ___ Session Segments, 15 Minutes Each 95339 2008 DARLENE THORNTON [facility] Phys Therapy Education Self Care Training - Per 15 Minutes Phys Therapy Education Self Care Training - Per 15 Minutes 65843 2008 DARLENE THORNTON [facility] Physical Medicine Physical Therapy Evaluation Physical Medicine Physical Therapy Evaluation 27401 2008 DARLENE THORNTON [facility] Non-Physician Phone Call To Pt/Provider Intermed (11-20 min) Non-Physician Phone Call To Pt/Provider Intermed (11-20 min) 10501 2008 ZAIN NIX [facility] Non-Physician Phone Call To Pt/Provider Intermed (11-20 min) Non-Physician Phone Call To Pt/Provider Intermed (11-20 min) 34074 2008 ROSELINE ROTHMAN [facility] Physical Therapy: ___ Se ion Segments, 15 Minutes Each Physical Therapy: ___ Session Segments, 15 Minutes Each 80075 2007 AYESHA KERR [facility] Modalities Traction Modalities Traction 92544 2007 AYESHA KERR [facility] Modalities Heat Hot Packs Modalities Heat Hot Packs 13436 2007 AYESHA KERR Modalities Electrical Stimulation Modalities Electrical Stimulation 06713 2007 AYESHA KERR Modalities Traction Modalities Traction 73830 2007 AYESHA KERR Physical Therapy: ___ Se ion Segments, 15 Minutes Each Physical Therapy: ___ Session Segments, 15 Minutes Each 52226 2007 AYESHA KERR Modalities Heat Hot Packs Modalities Heat Hot Packs 74536 2007 AYESHA KERR Modalities Electrical Stimulation Modalities Electrical Stimulation 99160 2007 AYESHA KERR Modalities Traction Modalities Traction 48549 2007 BOY LOMELI Modalities Heat Hot Packs Modalities Heat Hot Packs 87486 2007 BOY LOMLEI Modalities Electrical Stimulation Modalities Electrical Stimulation 59183 2007 BOY LOMELI Physical Therapy: ___ Se ion Segments, 15 Minutes Each Physical Therapy: ___ Session Segments, 15 Minutes Each 25421 2007 BOY LOMELI Modalities Heat Hot Packs Modalities Heat Hot Packs 87035 2007 BOY LOMELI Modalities Electrical Stimulation Modalities Electrical Stimulation 13720 2007 BOY LOMELI Modalities Traction Modalities Traction 13543 2007 BOY LOMELI Physical Therapy: ___ Se ion Segments, 15 Minutes Each Physical Therapy: ___ Session Segments, 15 Minutes Each 09202 2007 BOY LOMELI Physical Therapy: ___ Se ion Segments, 15 Minutes Each Physical Therapy: ___ Session Segments, 15 Minutes Each 01049 2007 BOY LOMELI Modalities Traction Modalities Traction 56374 2007 BOY LOMELI Modalities Traction Modalities Traction 67712 2007 ROSELINE VELAZCO Physical Medicine Physical Therapy Re-Evaluation Physical Medicine Physical Therapy Re-Evaluation 41684 2007 ROSELINE VELAZCO Modalities Electrical Stimulation Unattended Modalities Electrical Stimulation Unattended 90686 2007 BOY LOMELI Modalities Heat Hot Packs Modalities Heat Hot Packs 39071 2007 BOY LOMELI Modalities Traction Modalities Traction 70425 2007 BOY LOMELI Modalities Traction Modalities Traction 67803 2006 LIVEZEY, YANETH L DoD Modalities Electrical Stimulation Unattended Modalities Electrical Stimulation Unattended 98013 2006 YANETH CHRISTIANSON DoD Modalities Heat Hot Packs Modalities Heat Hot Packs 86700 2006 YANETH CHRISTIANSON DoD Modalities Electrical Stimulation Unattended Modalities Electrical Stimulation Unattended 24058 2006 LEONEL ESTRADA Modalities Heat Hot Packs Modalities Heat Hot Packs 64551 2006 LEONEL ESTRADA DoD Modalities Traction Modalities Traction 11452 2006 LEONEL ESTRADA Modalities Traction Modalities Traction 35685 2006 AYESHA KERR DoD Modalities Heat Hot Packs Modalities Heat Hot Packs 16299 2006 AYESHA KERR DoD Modalities Electrical Stimulation Unattended Modalities Electrical Stimulation Unattended 86746 2006 AYESHA KERR DoD Modalities Traction Modalities Traction 78750 2006 AYESHA KERR DoD Modalities Electrical Stimulation Unattended Modalities Electrical Stimulation Unattended 48879 2006 AYESHA KERR DoD Modalities Heat Hot Packs Modalities Heat Hot Packs 61245 2006 AYESHA KERR DoD Modalities Traction Modalities Traction 80923 2006 AYESHA KERR DoD Modalities Heat Hot Packs Modalities Heat Hot Packs 54670 2006 AYESHA KERR DoD Modalities Electrical Stimulation Unattended Modalities Electrical Stimulation Unattended 37968 2006 AYESHA KERR DoD Modalities Traction Modalities Traction 60047 2006 LEONEL ESTRADA Modalities Traction Modalities Traction 68585 2006 YANETH CHRISTIANSON DoD Modalities Traction Modalities Traction 10476 2006 YANETH CHRISTIANSON DoD Modalities Ultrasound Modalities Ultrasound 98739 2006 ROSELINE VELAZCO DoD Modalities Traction Modalities Traction 71529 2006 ROSELINE VELAZCO DoD Modalities Electrical Stimulation Unattended Modalities Electrical Stimulation Unattended 50371 2006 ROSELINE VELAZCO DoD Modalities Heat Hot Packs Modalities Heat Hot Packs 94084 2006 LEONEL ESTRADA Modalities Electrical Stimulation Modalities Electrical Stimulation 31821 2006 LEONEL ESTRADA Modalities Heat Hot Packs Modalities Heat Hot Packs 28177 2006 LEONEL ESTRADA [facility] Modalities Electrical Stimulation Modalities Electrical Stimulation 47196 2006 SEAN BAPTIST [facility] Modalities Heat Hot Packs Modalities Heat Hot Packs 78704 2006 LEONEL ESTRADA [facility] Modalities Electrical Stimulation Modalities Electrical Stimulation 84845 2006 LEONEL ESTRADA [facility] Modalities Heat Hot Packs Modalities Heat Hot Packs 53049 2006 BOY LOMELI [facility] Modalities Electrical Stimulation Modalities Electrical Stimulation 16415 2006 BOY LOMELI [facility] Modalities Heat Hot Packs Modalities Heat Hot Packs 35853 2006 ROSELINE VELAZCO [facility] Modalities Electrical Stimulation Unattended Modalities Electrical Stimulation Unattended 21903 2006 ROSELINE VELAZCO IFC 80-150 Hz to the LS region x 20 minutes [facility] Install Peripheral Transcutaneous Neurostimulator Install Peripheral Transcutaneous Neurostimulator 44262 2006 ROSELINE VELAZCO placement of TENS for home use. [facility] Physical Medicine Physical Therapy Evaluation Physical Medicine Physical Therapy Evaluation 11786 2006 ROSELINE VELAZCO [facility] Determination Of Refractive State Determination Of Refractive State 20293 2006 CASSIE FOURNIER [facility] Visual Alexander Test Intermediate Examination Visual Alexander Test Intermediate Examination 49741 2006 CASSIE FOURNIER [facility] Ophthalmological New Patient Start Comprehensive Care Ophthalmological New Patient Start Comprehensive Care 13572 2006 CASSIE FOURNIER [facility] Biopsy Endometrial, Without Cervical Dilation Biopsy Endometrial, Without Cervical Dilation 48881 2006 TANNER NAVARRO [facility] Waiver services; not otherwise specified (NOS) ALEXI SCOTT [facility] Vaginal Wet [place] Vaginal [place] [address]8427 BANDAR VILLAGOMEZ [facility] Vaginal KESHIA Prep Vaginal KESHIA Prep [address] [place] BANDAR GARCIA [facility] Social History Combined list of available smoking, tobacco, and other social history from [facility] of Defense and Veterans Affairs facilities. Social History Type Response Date Comment Sourc e This section is an empty social history section. DoD Assessment and Plan Combined list of future care activities from Department of Defense and Veterans Affairs facilities (e.g., assessment and plan notes, appointments, orders, and referrals). Additional future care activities may be listed in the Plan of Care section. Result Assessment and Plan Date Source Assessment and Plan No data available for this section 10/03/2024 Ambulatory Pharmacy Functional Status Combined list of recent functional and cognitive assessments recorded at [facility] ([facility] Functional [place] Measurement (FIM) Scale: 1 = Total Assistance (Subject = 0% +), 2 = Maximal Assistance (Subject = 25% +), 3 = Moderate Assistance (Subject = 50% +), 4 = Minimal Assistance (Subject = 75% +), 5 = Supervision, 6 = Modified [place] (Device), 7 = Complete [place] (Timely, Safely). Assessment Date/Time Source Assessment Type Assessment Skill Assessment Score Assessment Details No data available for this section
--- OUTSIDE RECORDS SUMMARY | 2024-10-02 19:24 | XMS_ITS | Clinical Summary ---
Author Organization [facility] Address [address] [place] [address] Care Team Providers Care Potash Flaker Name Role Phone No, Physician Primary Care Provider [phone] Allergies No known active allergies Medications No known medications Active Problems Problem Noted Date Diagnosed Date Chest pain 05/26/2019 Surgical History Surgery Date Site/Laterality Comments HYSTERECTOMY BACK SURGERY Medical History Medical History Date Comments Hypertension Family History Medical History Relation Name Comments Cancer Father Heart attack Father Stroke Father Parkinsonism Mother Relation Name Status Comments Father Mother Social History Tobacco Use Types Packs/Day Years [...] on file Legal 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
--- NOTE | 2024-10-02 20:26 | PC.NURSE ---
Pt ambulated to intake desk and states she is declining to be seen due to the lac is not that bad and she feels she can treat it at home. Pt ambulated out of ED in NAD. Steady gait.
--- OUTSIDE RECORDS SUMMARY | 2024-10-02 21:03 | XMS_ITS | Clinical Summary ---
Author Organization [facility] Address [address] [place] [id number] Care Team Providers Care Vacuum Pan Operator Name Role Phone Unavailable Primary Care Provider [...]
--- OUTSIDE RECORDS SUMMARY | 2024-10-02 21:04 | XMS_ITS | Continuity of Care Document ---
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 PAULINO 08 Aug 2016 1245 ------- ------- ------- ------- -- 24 LA AMBROSIO 08/08 Referred for Appointment [address] [place] [address])(S cott Interna l Medicin e Tm) [address] [place] [address])([facility] Internal Medicine Tm) OUTPATIENT [id number] weight loss and B/P MARIANNE MCHUGH V 08/18 Released w/o Limitations [address] [place] [address])(S cott Interna l Medicin e Tm) [address] [place] [address])([facility] tt Disease Managemen t) OUTPATIENT [id number] Notes Entered by: BRANDON MAE 19 Aug 2016 0854 ------- ------- ------- ------- -- Pt needing glucome ter teachin g per pcm BRANDON MAE 08/19 Released w/o Limitations [address] [place] [address])(S cott Disease Managem ent) [address] [place] [address])(Director Internal Control ecology) TELE CONSULT [id number] Notes Entered by: ALYSSA MACIAS 21 Aug 2016 1418 ------- ------- ------- ------- -- results KENZIE SIMPSON 08/[address] [place] [address])(G ynecolo gy) [address] [place] [address])(Director Internal Control ecology) OUTPATIENT [id number] [facility] ZUNILDA MACIAS 08/29 Released w/o Limitations [address] [place] [address])(G ynecolo gy) [address] [place] [address])(Director Internal Control ecology) TELE CONSULT [id number] Notes Entered by: ALYSSA MACIAS 04 Sep 2016 1312 ------- ------- ------- ------- -- results GRACE STEWART 09/[address] [place] [address])(G ynecolo gy) [address] [place] [address])(Director Internal Control ecology) OUTPATIENT [id number] discuss surgica l tx (hyster ectomy) [phone] RINA HERNANDES 09/09 Released w/o Limitations [address] [place] [address])(G ynecolo gy) [address] [place] [address])(Director Internal Control ecology) TELE CONSULT [id number] Notes Entered by: CELESTINE HUTSON 23 Sep 2016 1036 ------- ------- ------- ------- -- Jericho calhoun for surgery [id number] @1030 STEPHEN HUTSON 09/[address] [place] [address])(G ynecolo gy) [address] [place] [address])(Director Internal Control ecology) TELE CONSULT [id number] Notes Entered by: JAMIE LEACH 25 Sep 2016 1453 ------- ------- ------- ------- -- Scanned andrew gy results into RINA ENGLAND 09/[address] [place] [address])(G ynecolo gy) [address] [place] [address])(Director Internal Control ecology) OUTPATIENT [id number] post op/pre- op [phone] RINA HERNADNES 09/30 Released w/o Limitations [address] [place] [address] [place] [facility])(G ynecolo gy) [address] [place] [address] [facility])(Director Internal Control ecology) TELE CONSULT [id number] Notes Entered by: CELESTINE HUTSON 07 Oct 2016 0835 ------- ------- ------- ------- -- Jericho calhoun for surgery [id number] @0730 STEPHEN HUTSON 10/[address] [place] [address] [place] [facility])(G ynecolo gy) [address] [place] [address] [facility])(Director Internal Control ecology) TELE CONSULT [id number] Notes Entered by: JAMIE LEACH 09 Oct 2016 1532 ------- ------- ------- ------- -- Scanned andrew thornton report into RINA ENGLAND 10/[address] [place] [address] [facility] [facility])(G yulysses gy) [address] [place] [address] [facility] [facility])(Sco tt Internal Medicine Tm) TELE CONSULT [id number] Notes Entered by: CHULA CONNOR 13 Oct 2016 1026 ------- ------- ------- ------- -- Network Results Surgery 7 LIOR DAY 10/[address] [place] [address] [facility] [facility])(S cott Interna l Medicin e Tm) [address] [place] [address] [facility] [facility])(Director Internal Control ecology) TELE CONSULT [id number] Notes Entered by: JAMIE LEACH 14 Oct 2016 0807 ------- ------- ------- ------- -- Post op with MOLLY Acosta 10/[address] [place] [address] [facility] [facility])(G ynecolo gy) [address] [place] [address] [place] [facility])(Ob/ Director Internal Control) OUTPATIENT [id number] F/U RINA Rodgers 10/14 Released w/o Limitations [address] [place] [address] [place] [facility])(O b/Director Internal Control) [address] [place] [address] [facility])(Director Internal Control ecology) OUTPATIENT [id number] POST OP - [phone] RINA HERNANDES 11/04 Released w/o Limitations [address] [place] [address] [facility] [facility])(G ynecolo gy) [address] [place] [address] [facility])(Director Internal Control ecology) OUTPATIENT [id number] POST OP #2 - [phone] RINA HERNANDES 12/03 Released w/o Limitations [address] [place] [address] [facility])(G ynecolo gy) [address] [place] [address] [facility])(Director Internal Control ecology) TELE CONSULT [id number] Notes Entered by: ADRIANA ANDRADE 29 Dec 2016 1234 ------- ------- ------- ------- -- Network Results - PHYSICA L THERAPY 12/10/16 RINA LOCKETT 12/[address] [place] [address] [facility] [facility])(G ynecolo gy) [address] [place] [address])([facility] Internal Medicine Tm) OUTPATIENT [id number] 9 Routine Check - restart blood pressur e medicat ion SADIE GUTIERREZ NMI 09/21 Released w/o Limitations [address] [place] [address] [facility])(S cott Interna l Medicin e Tm) [address] [place] [address] [facility])([facility] Internal Medicine Tm) TELE CONSULT [id number] Notes Entered by: Colt GUTIERREZ NMI 24 Sep 2018 1026 ------- ------- ------- ------- -- Elevate d lipid panel. Pt was not fasting SADIE GUTIERREZ NMI 09/[address] [place] [address])(S cott Interna l Medicin e Tm) [address] [place] [address])([facility] tt Internal Medicine Tm) TELE CONSULT [id number] Notes Entered by: NELSY MOODY 27 May 2019 1035 ------- ------- ------- ------- -- Referra l Request /Sosgilberto / BENNIE GAYTAN Vazquez 05/26 Other Not Elsewhere Classified [address] [place] [address])(S cott Interna l Medicin e Tm) [address] [place] [address])([facility] tt Internal Medicine ) OUTPATIENT [id number] Virtual - Blood Pressur e, ALEXI SCOTT 02/23 Released w/o Limitations [address] [place] [address])(S cott Interna l Medicin e Tm) [address] [place] [address])([facility] Internal Medicine ) OUTPATIENT [id number] 6 f/u appt virtual [phone] ALEXI SCOTT 02/28 Released w/o Limitations [address] [place] [address])(S cott Interna l Medicin e Tm) [address] [place] [address])(Director Internal Control ecology) TELE CONSULT [id number] Notes Entered by: JOCELYN DREW RET 02 Jul 2020 0740 ------- ------- ------- ------- -- SX: Vaginal Irritat ion/Sports Complex Attendant ddock/l BANDAR VILLAGOMEZ 07/[address] [place] [address])(G ynecolo gy) [address] [place] [address])(Director Internal Control ecology) OUTPATIENT [id number] 6 STD concern no symptom s BANDAR VILLAGOMEZ 07/03 Released w/o Limitations [address] [place] [address])(G ynecolo gy) Procedures Combined list of: 1) Procedures from Department of Veterans Affairs facilities going back up to thelast 18 months, not all VA non-surgical procedures are included; 2) All procedures from the Department of Defense facilities. Procedure Procedure Type Code Date Perfomer Comments Sourc e EKG (SCALP) 1993 [facility] OTHER ARTIFICIAL RUPTURE OF MEMBRANES 1993 [facility] CYTOPATHOLOGY; PAP SMEAR, PRESERVED, AUTO THIN LAYER, MAX 3 2004 [facility] CARDIOVASCULAR STRESS TEST USING MAXIMAL OR SUBMAXIMAL TREADMILL OR BICYCLE EXERCISE,CONTINUOUS ELECTROCARDIOGRAPHIC MONITORING,AND/OR PHARMACOLOGICAL STRESS;W SUPERVISION,INTERPRETA TION AND REPORT 2003 [facility] ELECTROCARDIOGRAM, ROUTINE ECG WITH AT LEAST 12 LEADS; WITH INTERPRETATION AND REPORT 2003 [facility] INJECTION, KETOROLAC TROMETHAMINE, PER 15 MG 2002 [facility] SMEAR, PRIMARY SOURCE WITH INTERPRETATION; WET MOUNT FOR INFECTIOUS AGENTS (EG, SALINE, NIKHIL INK, KESHIA PREPS) 2020 [employer]; NOT OTHERWISE SPECIFIED (NOS) 2019 [employer]; NOT OTHERWISE SPECIFIED (NOS) 2019 [facility] BRIEF EMOTIONAL/BEHAVIORAL ASSESSMENT (EG, DEPRESSION INVENTORY, ATTENTION-DEFICIT/HYPE RACTIVITY DISORDER [ADHD] SCALE), WITH SCORING AND DOCUMENTATION, PER STANDARDIZED INSTRUMENT 2018 [facility] BRIEF EMOTIONAL/BEHAVIORAL ASSESSMENT (EG, DEPRESSION INVENTORY, ATTENTION-DEFICIT/HYPE RACTIVITY DISORDER [ADHD] SCALE), WITH SCORING AND DOCUMENTATION, PER STANDARDIZED INSTRUMENT 2016 [facility] TELE ASSESS & MGT SRV PROV QUAL NONPHYS HLTH CARE PRO TO EST PAT,PARENT,GUARD NOT ORIG REL ASSESS & MGT SRV PROV W/IN PREV 7 DAYS NOR LEAD ASSESS & MGT SRV/PX W/IN NXT 24 HR/SOON APT;5-10 MIN MED DIS 2016 [facility] ANTERIOR COLPORRHAPHY, REPAIR OF CYSTOCELE WITH OR [...] ENDURANCE, RANGE OF MOTION AND FLEXIBILITY 2008 [facility] MANUAL THERAPY TECHNIQUES (EG, MOBILIZATION/ MANIPULATION, MANUAL [...] 1 OR MORE AREAS; TRACTION, MECHANICAL 2007 [facility] APPLICATION OF A MODALITY TO 1 OR MORE AREAS; ELECTRICAL STIMULATION (MANUAL), EACH 15 MINUTES 2007 [facility] THERAPEUTIC PROCEDURE, 1 OR MORE AREAS, EACH [...] RE-EVALUATION 2005 [facility] SUPP &MATERIAL (EXCEPT SPECTACLE),PROVID,[facility]/OTH QUALIFIED HEALTH SALES SECRETARY OVER &ABOVE THOSE USUALLY INCLD W THE OFFICE VISIT/OTH SER RENDERED (LIST DRUG,TRAYS,SUPP,OR MATERIAL PROVID) 2005 [facility] APPLICATION OF A MODALITY TO 1 OR MORE AREAS; HOT OR COLD PACKS 2004 [facility] APPLICATION OF A MODALITY TO 1 OR [...] EQUIP) DIR ONE-ON-ONE CONT,EA 15 MINUTES 2004 [facility] OTHER BILATERAL ENDOSCOPIC DESTRUCTION OR OCCLUSION OF FALLOPIAN TUBES 1995 [facility] Cervical Pap Smear Cervical Pap Smear 48040 2006 TANNER NAVARRO [facility] Endometrial Biopsy By Suction Endometrial Biopsy By Suction 43781 2005 ZUNILDA MACIAS [facility] Physical Medicine Physical Therapy Re-Evaluation Physical Medicine Physical Therapy Re-Evaluation 76209 2005 DARLENE THORNTON [facility] Physical Medicine Physical Therapy Re-Evaluation Physical Medicine Physical Therapy Re-Evaluation 60127 2005 DARLENE THORNTON [facility] Phys Therapy Education Self Care Training - Per 15 Minutes Phys Therapy Education Self Care Training - Per 15 Minutes [address]Supervised Services Provision Of Special Supplies -Supervised Services Provision Of Special Supplies 72976 2005 DARLENE THORNTON [facility] Training And Self-Care Skills Training And Self-Care Skills 63475 2004 BOY LOMELI Modalities Electrical Stimulation Unattended Modalities Electrical Stimulation Unattended 47108 2004 BOY LOMELI Modalities Heat Hot Packs Modalities Heat Hot Packs 15960 2004 BOY LOMELI Modalities Electrical Stimulation Unattended Modalities Electrical Stimulation Unattended 65788 2004 BOY LOMELI Training And Self-Care Skills Training And Self-Care Skills 52427 2004 BOY LOMELI [facility] Modalities Heat Hot Packs Modalities Heat Hot Packs 49558 2004 BOY LOMELI [facility] Modalities Heat Hot Packs Modalities Heat Hot Packs 48612 2004 BENNIE LOZANO [facility] Modalities Electrical Stimulation Unattended Modalities Electrical Stimulation Unattended 82158 2004 BENNIE LOZANO [facility] Training And Self-Care Skills Training And Self-Care Skills 89464 2004 BENNIE LOZANO [facility] Physical Medicine Physical Therapy Re-Evaluation Physical Medicine Physical Therapy Re-Evaluation 01471 2004 DARLENE THORNTON [facility] Physical Therapy Mobilization Joint Physical Therapy Mobilization Joint 32317 2004 DARLENE THORNTON [facility] Modalities Heat Hot Packs Modalities Heat Hot Packs 17251 2004 DARLENE THORNTON [facility] Physical Medicine Physical Therapy Evaluation Physical Medicine Physical Therapy Evaluation 32470 2004 DARLENE THORNTON [facility] Phys Therapy Education Self Care Training - Per 15 Minutes Phys Therapy Education Self Care Training - Per 15 Minutes 74781 2004 DARLENE THORNTON [facility] Non-Physician Phone Call To Patient/Provider Brief (5-10min) Non-Physician Phone Call To Patient/Provider Brief (5-10min) 31322 2016 MOLLY VÁZQUEZ [facility] Non-Physician Phone Call To Patient/Provider Brief (5-10min) Non-Physician Phone Call To Patient/Provider Brief (5-10min) 92097 2016 STEPHEN HUTSON [facility] Non-Physician Phone Call To Patient/Provider Brief (5-10min) Non-Physician Phone Call To Patient/Provider Brief (5-10min) [id number] 2016 STEPHEN HUTSON [facility] Endometrial Biopsy By Suction Endometrial Biopsy By Suction [id number] 2016 ZUNILDA MACIAS [facility] Test Test [id number] 2016 ZUNILDA MACIAS [facility] Non-Physician Phone Call To Patient/Provider Brief (5-10min) Non-Physician Phone Call To Patient/Provider Brief (5-10min) [id number] 2016 LA DOLAN [facility] Screening papanicolaou smear; obtaining, preparing and conveyance of cervical or vaginal smear to laboratory 2016 ZUNILDA MACIAS [facility] Splinting Wrist Static Neutral Position Splinting Wrist Static Neutral Position [id number] 2016 MAYANK DASILVA [facility] Non-Physician Phone Call To Patient/Provider Brief (5-10min) Non-Physician Phone Call To Patient/Provider Brief (5-10min) [id number] 2016 BENNIE BUTTS Determination Of Refractive State Determination Of Refractive State 93018 2013 ANNAMARIE BURK Scanning Computerized Ophthalmic Diagnostic Imaging Optic Nerve Scanning Computerized Ophthalmic Diagnostic Imaging Optic Nerve 77168 2013 ANNAMARIE BURK Visual Alexander Test Intermediate Examination Visual Alexander Test Intermediate Examination [id number] 2013 ANNAMARIE BURK Ophthalmological New Patient Start Comprehensive Care Ophthalmological New Patient Start Comprehensive Care [id number] 2013 ANNAMARIE BURK Non-Physician Phone Call To Patient/Provider Brief (5-10min) Non-Physician Phone Call To Patient/Provider Brief (5-10min) [id number] 2012 HANH JAVIER Non-Physician Phone Call To Patient/Provider Brief (5-10min) Non-Physician Phone Call To Patient/Provider Brief (5-10min) [id number] 2012 HANH JAVIER Skin Tag Removal Skin Tag Removal [id number] 2011 MILIND FUENTES [facility] Non-Physician Phone Call To Patient/Provider Brief (5-10min) Non-Physician Phone Call To Patient/Provider Brief (5-10min) [id number] 2011 HANH JAVIER Screening papanicolaou smear; obtaining, preparing and conveyance of cervical or vaginal smear to laboratory 2009 MILLICENT MARCOS [facility] Physical Therapy Mobilization Joint Physical Therapy Mobilization Joint 47155 2008 DARLENE THORNTON [facility] Physical Therapy: ___ Se ion Segments, 15 Minutes Each Physical Therapy: ___ Session Segments, 15 Minutes Each [id number] 2008 DARLENE THORNTON [facility] Physical Therapy: ___ Se ion Segments, 15 Minutes Each Physical Therapy: ___ Session Segments, 15 Minutes Each [id number] 2008 MELLY LAINEZ [facility] Physical Therapy Mobilization Joint Physical Therapy Mobilization Joint [id number] 2008 DARLENE THORNTON [facility] Physical Therapy: ___ Se ion Segments, 15 Minutes Each Physical Therapy: ___ Session Segments, 15 Minutes Each [id number] 2008 DARLENE THORNTON [facility] Modalities Traction Modalities Traction 83167 2008 DARLENE THORNTON [facility] Physical Therapy Mobilization Joint Physical Therapy Mobilization Joint 00310 2008 DARLENE THORNTON [facility] Physical Therapy: ___ Se ion Segments, 15 Minutes Each Physical Therapy: ___ Session Segments, 15 Minutes Each [id number] 2008 DARLENE THORNTON [facility] Physical Therapy: ___ Se ion Segments, 15 Minutes Each Physical Therapy: ___ Session Segments, 15 Minutes Each [id number] 2008 DARLENE THORNTON [facility] Physical Therapy: ___ Se ion Segments, 15 Minutes Each Physical Therapy: ___ Session Segments, 15 Minutes Each [id number] 2008 DARLENE THORNTON [facility] Physical Therapy: ___ Se ion Segments, 15 Minutes Each Physical Therapy: ___ Session Segments, 15 Minutes Each [id number] 2008 DARLENE THORNTON [facility] Phys Therapy Education Self Care Training - Per 15 Minutes Phys Therapy Education Self Care Training - Per 15 Minutes [id number] 2008 DARLENE THORNTON [facility] Physical Medicine Physical Therapy Evaluation Physical Medicine Physical Therapy Evaluation 04152 2008 DARLENE THORNTON [facility] Non-Physician Phone Call To Pt/Provider Intermed (11-20 min) Non-Physician Phone Call To Pt/Provider Intermed (11-20 min) [id number] 2008 ZAIN NIX [facility] Non-Physician Phone Call To Pt/Provider Intermed (11-20 min) Non-Physician Phone Call To Pt/Provider Intermed (11-20 min) [id number] 2008 ROSELINE ROTHMAN [facility] Physical Therapy: ___ Se ion Segments, 15 Minutes Each Physical Therapy: ___ Session Segments, 15 Minutes Each [id number] 2007 AYESHA KERR [facility] Modalities Traction Modalities Traction 12439 2007 AYESHA KERR [facility] Modalities Heat Hot Packs Modalities Heat Hot Packs 50658 2007 AYESHA KERR [facility] Modalities Electrical Stimulation Modalities Electrical Stimulation 88166 2007 AYESHA KERR Modalities Traction Modalities Traction 19960 2007 AYESHA KERR Physical Therapy: ___ Se ion Segments, 15 Minutes Each Physical Therapy: ___ Session Segments, 15 Minutes Each [id number] 2007 AYESHA KERR Modalities Heat Hot Packs Modalities Heat Hot Packs 64754 2007 AYESHA KERR Modalities Electrical Stimulation Modalities Electrical Stimulation 52770 2007 AYESHA KERR Modalities Traction Modalities Traction 93221 2007 BOY LOMELI Modalities Heat Hot Packs Modalities Heat Hot Packs 12937 2007 BOY LOMELI Modalities Electrical Stimulation Modalities Electrical Stimulation 70325 2007 BOY LOMELI Physical Therapy: ___ Se ion Segments, 15 Minutes Each Physical Therapy: ___ Session Segments, 15 Minutes Each 59136 2007 BOY LOMELI Modalities Heat Hot Packs Modalities Heat Hot Packs 52003 2007 BOY LOMELI Modalities Electrical Stimulation Modalities Electrical Stimulation 69481 2007 BOY LOMELI Modalities Traction Modalities Traction 11437 2007 BOY LOMELI Physical Therapy: ___ Se ion Segments, 15 Minutes Each Physical Therapy: ___ Session Segments, 15 Minutes Each 39229 2007 BOY LOMELI Physical Therapy: ___ Se ion Segments, 15 Minutes Each Physical Therapy: ___ Session Segments, 15 Minutes Each 72125 2007 BOY LOMELI Modalities Traction Modalities Traction 57364 2007 BOY LOMELI Modalities Traction Modalities Traction 60799 2007 ROSELINE VELAZCO Physical Medicine Physical Therapy Re-Evaluation Physical Medicine Physical Therapy Re-Evaluation 74160 2007 ROSELINE VELAZCO Modalities Electrical Stimulation Unattended Modalities Electrical Stimulation Unattended 56111 2007 BOY LOMELI Modalities Heat Hot Packs Modalities Heat Hot Packs 27292 2007 BOY LOMELI Modalities Traction Modalities Traction 69776 2007 BOY LOMELI Modalities Traction Modalities Traction 27930 2006 YANETH CHRISTIANSON Modalities Electrical Stimulation Unattended Modalities Electrical Stimulation Unattended 97835 2006 YANETH CHRISTIANSON DoD Modalities Heat Hot Packs Modalities Heat Hot Packs 11252 2006 YANETH CHRISTIANSON DoD Modalities Electrical Stimulation Unattended Modalities Electrical Stimulation Unattended 95718 2006 LEONEL ESTRADA Modalities Heat Hot Packs Modalities Heat Hot Packs 12463 2006 LEONEL ESTRADA Modalities Traction Modalities Traction 37436 2006 LEONEL ESTRADA Modalities Traction Modalities Traction 06833 2006 AYESHA KERR DoD Modalities Heat Hot Packs Modalities Heat Hot Packs 37728 2006 AYESHA KERR DoD Modalities Electrical Stimulation Unattended Modalities Electrical Stimulation Unattended 90686 2006 AYESHA KERR DoD Modalities Traction Modalities Traction 29217 2006 AYESHA KERR DoD Modalities Electrical Stimulation Unattended Modalities Electrical Stimulation Unattended 26845 2006 AYESHA KERR DoD Modalities Heat Hot Packs Modalities Heat Hot Packs 95657 2006 AYESHA KERR DoD Modalities Traction Modalities Traction 47243 2006 AYESHA KERR DoD Modalities Heat Hot Packs Modalities Heat Hot Packs 97856 2006 AYESHA KERR DoD Modalities Electrical Stimulation Unattended Modalities Electrical Stimulation Unattended 28717 2006 AYESHA KERR DoD Modalities Traction Modalities Traction 42845 2006 LEONEL ESTRADA Modalities Traction Modalities Traction 85851 2006 YANETH CHRISTIANSON DoD Modalities Traction Modalities Traction 03368 2006 YANETH CHRISTIANSON DoD Modalities Ultrasound Modalities Ultrasound 07665 2006 ROSELINE VELAZCO DoD Modalities Traction Modalities Traction 50640 2006 ROSELINE VELAZCO DoD Modalities Electrical Stimulation Unattended Modalities Electrical Stimulation Unattended 96442 2006 ROSELINE VELAZCO DoD Modalities Heat Hot Packs Modalities Heat Hot Packs 12419 2006 LEONEL ESTRADA Modalities Electrical Stimulation Modalities Electrical Stimulation 65215 2006 LEONEL ESTRADA Modalities Heat Hot Packs Modalities Heat Hot Packs 98201 2006 LEONEL ESTRADA Modalities Electrical Stimulation Modalities Electrical Stimulation 62117 2006 SEAN BAPTIST [facility] Modalities Heat Hot Packs Modalities Heat Hot Packs 98755 2006 LEONEL ESTRADA [facility] Modalities Electrical Stimulation Modalities Electrical Stimulation 52751 2006 SEAN BAPTIST [facility] Modalities Heat Hot Packs Modalities Heat Hot Packs 92399 2006 BYO LOMELI [facility] Modalities Electrical Stimulation Modalities Electrical Stimulation 77159 2006 BOY LOMELI [facility] Modalities Heat Hot Packs Modalities Heat Hot Packs 54778 2006 ROSELINE VELAZCO [facility] Modalities Electrical Stimulation Unattended Modalities Electrical Stimulation Unattended 39950 2006 ROSELINE VELAZCO IFC 80-150 Hz to the LS region x 20 minutes [facility] Install Peripheral Transcutaneous Neurostimulator Install Peripheral Transcutaneous Neurostimulator 77128 2006 ROSELINE VELAZCO placement of TENS for home use. [facility] Physical Medicine Physical Therapy Evaluation Physical Medicine Physical Therapy Evaluation 55165 2006 ROSELINE VELAZCO [facility] Determination Of Refractive State Determination Of Refractive State 27492 2006 CASSIE FOURNIER [facility] Visual Alexander Test Intermediate Examination Visual Alexander Test Intermediate Examination 75067 2006 CASSIE FOURNIER [facility] Ophthalmological New Patient Start Comprehensive Care Ophthalmological New Patient Start Comprehensive Care 28715 2006 CASSIE FOURNIER [facility] Biopsy Endometrial, Without Cervical Dilation Biopsy Endometrial, Without Cervical Dilation 35948 2006 TANNER NAVARRO [facility] Waiver services; not otherwise specified (NOS) ALEXI SCOTT [facility] Vaginal Wet [place] Vaginal [place] 33586 BANDAR VILLAGOMEZ [facility] Vaginal KESHIA Prep Vaginal KESHIA Prep 37494 [place] BANDAR GARCIA [facility] No data available for this section Ambulatory Pharmacy Social History Combined list of available smoking, [...] of Defense and Veterans Affairs (VA).VA Functional [place] Measurement (FIM) Scale: 1 = Total Assistance (Subject = 0% +), 2 = Maximal Assistance (Subject = 25% +), 3 = Moderate Assistance (Subject = 50% +), 4 = Minimal Assistance (Subject = 75% +), 5 = Supervision, 6 = Modified [place] (Device), 7 = Complete [place] (Timely, Safely). Assessment Date/Time Source Assessment Type Assessment Skill Assessment Score Assessment Details No data available for this section
--- OUTSIDE RECORDS SUMMARY | 2024-10-02 21:04 | XMS_ITS | Referral Summary ---
Author Organization [facility] Address [address] [place] [address] Care Team Providers Care Coat Tailor Name Role Phone No, Physician Primary Care Provider [phone] Allergies No known active allergies Medications No [...] on file Legal Sex Female 1:57 AM [employer] Gender Identity Not on file Sexual Orientation [...] Plan of Treatment Not on file Insurance [facility] CLAIMS [facility] CLAIM[facility] Care Teams Coat Tailor Relationship Specialty Start Date End Date No, Physician PCP - General 05/26/19
--- OUTSIDE RECORDS SUMMARY | 2024-10-02 21:04 | XMS_ITS | Clinical Summary ---
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
== END 2024-10-02 21:16 | disposition left against medical advice (07) ==
LOC: ANHED 21:01
DX: S61.218A Laceration without foreign body of other finger without damage to nail, initial encounter (principal); W27.4XXA Contact with kitchen utensil, initial encounter
CPT/HCPCS: 99199